=== PATIENT | male | born 1990 | race Two or more races ===

== ENCOUNTER 2021-05-26 23:32 | Emergency (ER) | payer OTHER ==
[~2021-05-26] VITALS: Ht 170.2 cm; Wt 69.9 kg
[2021-05-27 03:52] VITALS: BP 114/64
[2021-05-27] MEDS ORDERED: BACITRACIN TOP OINT 1 UD PKG TOP ONE (04:30)
== END 2021-05-27 04:49 | disposition home or self-care (01) ==
LOC: EDBD 23:32 → ER 23:36
DX: S61.301A Unspecified open wound of left index finger with damage to nail, initial encounter (principal); S61.012A Laceration without foreign body of left thumb without damage to nail, initial encounter; S61.412A Laceration without foreign body of left hand, initial encounter; W26.0XXA Contact with knife, initial encounter; Y93.89 Activity, other specified; Y92.89 Other specified places as the place of occurrence of the external cause; Y99.8 Other external cause status